=== PATIENT | male | born 1935 | race Caucasian/White ===

== ENCOUNTER 2018-11-12 04:39 | Inpatient (IN) | payer MEDICARE, BC ==
[2018-11-12] MEDS ORDERED: Sodium Chloride 0.9% 1,000 ML IV ONE (05:03)
[2018-11-12] MEDS ORDERED: Ondansetron 4 MG/2 ML SDV IV ONE (05:03)
--- NOTE | 2018-11-12 05:06 | EDM.PDOC ---
<SaabJoseph Erin - Last Filed: 11/12/18 06:44> ED HPI GENERAL MEDICAL PROBLEM - General Stated Complaint: WEAK [id number] Time Seen by Provider: 11/12/18 04:55 Source of Information: Reports: Patient, Family History Limitations: Reports: No Limitations - History of Present Illness INITIAL COMMENTS - FREE TEXT/NARRATIVE: This 83 yo male patient was brought to the ED by family due to increased weakness, fall, vomiting (black) and black stools. The patient reports he has not been feeling well over the past couple of days. The patient reports he has been vomiting a black substance and having black stools for the past 3 days. The patients family reports the patient has not been eating much over the past 3 months, but has been drinking alcohol. The patient has been seen at the [facility] [place], but they have been told that his labs "check out". The family report that they have been telling them that the patient is malnourished. The patient admits to having a couple of drinks of whiskey daily. The patient reports that he used to drink "a lot". The family believes that he may drink 6 shots per day at this time. The family reports that the patient used to drink 1 bottle of whiskey every 1-2 days up to 2 weeks ago. The family reports the patient has a history of a stomach ulcer (non-compliant with PPI) and anemia ( non-compliant with iron). Duration: Day(s):, Constant, Getting Worse Location: Reports: Generalized Quality: Reports: Other Severity: Moderate Improves with: Reports: None Worsens with: Reports: None Context: Reports: Other Associated Symptoms: Reports: Nausea/Vomiting, Weakness, Other (black stools and vomiting dark substances) Middle Abdomen Pain Score (Numeric/FACES): 4 - Related Data Allergies Allergy/AdvReac Type Severity Reaction Status Date / Time No Known Allergies Allergy Verified 11/12/18 05:05 Home Meds: Home Meds Aspirin [Halfprin] 81 mg PO DAILY 08/18/13 [History] Diltiazem HCl [Cartia Xt] 120 mg PO DAILY 02/25/18 [History] amLODIPine [Norvasc] 5 mg PO DAILY 02/25/18 [History] Omeprazole 40 mg PO DAILY 11/12/18 [History] Rosuvastatin [Crestor] 10 mg PO DAILY 11/12/18 [History] ED ROS GENERAL - Review of Systems Review Of Systems: ROS reveals no pertinent complaints other than HPI. ED EXAM, GENERAL - Physical Exam Exam: See Below Exam Limited By: No Limitations General Appearance: Alert, WD/WN, Moderate Distress, Thin Eye Exam: Bilateral Eye: EOMI, Normal Inspection, PERRL Ears: Normal External Exam, Normal Canal, Hearing Grossly Normal, Normal TMs Nose: Normal Inspection, Normal Mucosa, No Blood Throat/Mouth: Normal Inspection, Normal Lips, Normal Teeth, Normal Gums, Normal Oropharynx, Normal Voice, No Airway Compromise Head: Atraumatic, Normocephalic Neck: Normal Inspection, Supple, Non-Tender, Full Range of Motion Respiratory/Chest: No Respiratory Distress, Lungs Clear, Normal Breath Sounds, No Accessory Muscle Use, Chest Non-Tender Cardiovascular: Normal Peripheral Pulses, Regular Rate, Rhythm, No Edema, No Gallop, No JVD, No Murmur, No Rub GI/Abdominal: Normal Bowel Sounds, Soft, No Organomegaly, No Distention, No Abnormal Bruit, No Mass, Tender (diffuse tenderness to palpation) (Male) Exam: Deferred Rectal (Males) Exam: Deferred Back Exam: Normal Inspection, Full Range of Motion, NT Extremities: Arm Pain (skin tear on left elbow due to fall tonight with no current bleeding) Neurological: Alert, Oriented, CN II-XII Intact, Normal Cognition, Abnormal Gait (due to weakness) Psychiatric: Normal Affect, Normal Mood Skin Exam: Warm, Dry, Normal Color, No Rash, Wound/Incision (left arm) Lymphatic: No Adenopathy Course - Vital Signs Last Recorded V/S: Last Vital Signs Temp 36.5 C 11/12/18 04:46 Pulse 102 H 11/12/18 04:46 Resp 26 H 11/12/18 04:46 BP 91/65 11/12/18 04:46 Pulse Ox 99 11/12/18 04:46 - Orders/Labs/Meds Orders: Active Orders 24 hr Category Date Time Status EKG Documentation Completion [RC] URGENT Care 11/12/18 04:59 Active CULTURE BLOOD [BC] Stat Lab 11/12/18 05:38 Received CULTURE BLOOD [BC] Stat Lab 11/12/18 05:43 Received DRUG SCREEN URINE BIORAD [URCHEM] Stat Lab 11/12/18 04:59 Ordered STREP PNEUMONIAE ANTIGEN [MREF] Stat Lab 11/12/18 08:54 Ordered Lactated Ringers [Ringers, Lactated] 1,000 ml Med 11/12/18 07:15 Active IV ASDIRECTED Blood Culture x2 Reflex Set [OM.PC] Stat Oth 11/12/18 05:28 Ordered Medication Orders Lactated Ringer's (Ringers, Lactated) 1,000 mls @ 250 mls/hr IV ASDIRECTED ROEL Last Admin: 11/12/18 07:06 Dose: 250 mls/hr Labs: Laboratory Tests 11/12/18 11/12/18 11/12/18 Range/Units 04:54 04:54 04:54 WBC 25.6 H* (5.0-10.0) 10^3/uL RBC 4.47 L (4.6-6.2) 10^6/uL Hgb 11.7 L (14.0-18.0) g/dL Hct 35.4 L (40.0-54.0) % MCV 79.2 L (80-100) fL MCH 26.2 L (27.0-34.0) pg MCHC 33.1 (33.0-35.0) g/dL Plt Count 458 H (150-450) 10^3/uL Neut % (Auto) 89.8 H (42.2-75.2) % Lymph % (Auto) 2.5 L (20.5-50.1) % Park % (Auto) 7.7 (2-8) % Eos % (Auto) 0.0 L (1.0-3.0) % Baso % (Auto) 0.0 (0.0-1.0) % APTT 26.3 (22.0-34.0) SEC Sodium (135-145) mmol/L Potassium (3.6-5.0) mmol/L Chloride (101-111) mmol/L Carbon Dioxide (21.0-31.0) mmol/L Anion Gap BUN (7-18) mg/dL Creatinine (0.6-1.3) mg/dL Est Cr Clr Drug Dosing mL/min Estimated GFR (MDRD) BUN/Creatinine Ratio Glucose (74-105) mg/dL Lactic Acid (0.5-2.2) mmol/L Calcium (8.4-10.2) mg/dl Magnesium 1.6 L (1.8-2.5) mg/dL Total Bilirubin (0.2-1.0) mg/dL AST (10-42) IU/L ALT (10-60) IU/L Alkaline Phosphatase (42-121) IU/L Ammonia (11-35) umol/L Troponin I (0.00-0.02) ng/ml Total Protein (6.7-8.2) g/dl Albumin (3.2-5.5) g/dl Globulin Albumin/Globulin Ratio Amylase 32 (28-100) U/L Lipase 17 L (22-51) U/L Ethyl Alcohol < 5 mg/dL 11/12/18 11/12/18 11/12/18 Range/Units 04:54 05:43 05:43 WBC (5.0-10.0) 10^3/uL RBC (4.6-6.2) 10^6/uL Hgb (14.0-18.0) g/dL Hct (40.0-54.0) % MCV (80-100) fL MCH (27.0-34.0) pg MCHC (33.0-35.0) g/dL Plt Count (150-450) 10^3/uL Neut % (Auto) (42.2-75.2) % Lymph % (Auto) (20.5-50.1) % Park % (Auto) (2-8) % Eos % (Auto) (1.0-3.0) % Baso % (Auto) (0.0-1.0) % APTT (22.0-34.0) SEC Sodium 132 L (135-145) mmol/L Potassium 3.3 L (3.6-5.0) mmol/L Chloride 90 L (101-111) mmol/L Carbon Dioxide 21.0 (21.0-31.0) mmol/L Anion Gap 24.3 BUN 19 H (7-18) mg/dL Creatinine 1.6 H (0.6-1.3) mg/dL Est Cr Clr Drug Dosing 33.68 mL/min Estimated GFR (MDRD) 42 BUN/Creatinine Ratio 11.87 Glucose 226 H (74-105) mg/dL Lactic Acid 6.3 H (0.5-2.2) mmol/L Calcium 8.2 L (8.4-10.2) mg/dl Magnesium (1.8-2.5) mg/dL Total Bilirubin 0.6 (0.2-1.0) mg/dL AST 39 (10-42) IU/L ALT 13 (10-60) IU/L Alkaline Phosphatase 119 (42-121) IU/L Ammonia 10 L (11-35) umol/L Troponin I 0.04 H* (0.00-0.02) ng/ml Total Protein 5.7 L (6.7-8.2) g/dl Albumin 2.0 L (3.2-5.5) g/dl Globulin 3.7 Albumin/Globulin Ratio 0.54 Amylase (28-100) U/L Lipase (22-51) U/L Ethyl Alcohol mg/dL 11/12/18 11/12/18 Range/Units 08:06 08:06 WBC (5.0-10.0) 10^3/uL RBC (4.6-6.2) 10^6/uL Hgb (14.0-18.0) g/dL Hct (40.0-54.0) % MCV (80-100) fL MCH (27.0-34.0) pg MCHC (33.0-35.0) g/dL Plt Count (150-450) 10^3/uL Neut % (Auto) (42.2-75.2) % Lymph % (Auto) (20.5-50.1) % Park % (Auto) (2-8) % Eos % (Auto) (1.0-3.0) % Baso % (Auto) (0.0-1.0) % APTT (22.0-34.0) SEC Sodium (135-145) mmol/L Potassium (3.6-5.0) mmol/L Chloride (101-111) mmol/L Carbon Dioxide (21.0-31.0) mmol/L Anion Gap BUN (7-18) mg/dL Creatinine (0.6-1.3) mg/dL Est Cr Clr Drug Dosing mL/min Estimated GFR (MDRD) BUN/Creatinine Ratio Glucose (74-105) mg/dL Lactic Acid 4.3 H (0.5-2.2) mmol/L Calcium (8.4-10.2) mg/dl Magnesium (1.8-2.5) mg/dL Total Bilirubin (0.2-1.0) mg/dL AST (10-42) IU/L ALT (10-60) IU/L Alkaline Phosphatase (42-121) IU/L Ammonia (11-35) umol/L Troponin I 0.04 H* (0.00-0.02) ng/ml Total Protein (6.7-8.2) g/dl Albumin (3.2-5.5) g/dl Globulin Albumin/Globulin Ratio Amylase (28-100) U/L Lipase (22-51) U/L Ethyl Alcohol mg/dL Meds: Medications Generic Name Dose Route Start Last Admin Trade Name Freq PRN Reason Stop Dose Admin Lactated Ringer's 1,000 mls @ 250 mls/hr 11/12/18 07:15 11/12/18 07:06 Ringers, Lactated IV 250 mls/hr ASDIRECTED ROEL Administration Discontinued Medications Generic Name Dose Route Start Last Admin Trade Name Freq PRN Reason Stop Dose Admin Sodium Chloride 1,000 mls @ 999 mls/hr 11/12/18 05:03 11/12/18 05:08 Normal Saline IV 11/12/18 06:03 999 mls/hr .BOLUS ONE Administration Azithromycin 500 mg/ Sodium 250 mls @ 250 mls/hr 11/12/18 07:03 11/12/18 07: 55 Chloride IV 11/12/18 08:02 250 mls/hr ONETIME ONE Administration Ceftriaxone Sodium 2,000 mg/ 100 mls @ 200 mls/hr 11/12/18 07:03 11/12/18 07: 12 Sodium Chloride IV 11/12/18 07:32 200 mls/hr ONETIME ONE Administration Ondansetron HCl 4 mg 11/12/18 05:03 11/12/18 05:10 Zofran IV 11/12/18 05:04 4 mg ONETIME ONE Administration Pantoprazole Sodium 40 mg 11/12/18 05:15 11/12/18 05:23 Protonix Iv IVPUSH 11/12/18 05:16 40 mg ONETIME ONE Administration - Re-Assessments/Exams Free Text/Narrative Re-Assessment/Exam: 11/12/18 05:44 After the initial assessment, the patient reports he did hit his head when he fell today. The patient does not know where he hit his head. The patient reports that it is all "confusing". Departure - Departure Disposition: Admitted As Inpatient 68 Clinical Impression: Peptic ulcer, DORENE (acute kidney injury), Hypomagnesemia Pneumonia Qualifiers: Pneumonia type: due to unspecified organism Laterality: right Lung location: lower lobe of lung Qualified Code(s): J18.1 - Lobar pneumonia, unspecified organism Sepsis Qualifiers: Sepsis type: sepsis due to unspecified organism Qualified Code(s): A41.9 - Sepsis, unspecified organism - Discharge Information - My Orders Last 24 Hours: My Active Orders 11/12/18 07:15 Lactated Ringers [Ringers, Lactated] 1,000 ml IV ASDIRECTED 11/12/18 08:54 STREP PNEUMONIAE ANTIGEN [MREF] Stat - Assessment/Plan Last 24 Hours: My Active Orders 11/12/18 07:15 Lactated Ringers [Ringers, Lactated] 1,000 ml IV ASDIRECTED 11/12/18 08:54 STREP PNEUMONIAE ANTIGEN [MREF] Stat <Yury Hernandez G - Last Filed: 11/12/18 09:14> Course - Re-Assessments/Exams Free Text/Narrative Re-Assessment/Exam: 11/12/18 07:15 Assumed care of the patient. Will repeat lactic acid and troponin. More fluids and rocephin and azithromycin. 11/12/18 09:11 lactic improved to 4 aprox. Trop stayed the same. Still unable to urinate. Fluids still going. Spoke with Dr. Whelan. HPI ER COURSE findings and concerns were relayed to him. Questions answered and he accepted the patient in transfer at this time. Departure - Departure Time of Disposition: 09:12 - Assessment/Plan Assessment:: RLL pneumona weakness DORENE Hypomag sepsis without septic shock. Plan: admit Dr. Whelan inpatient [facility]
[2018-11-12] MEDS ORDERED: Pantoprazole 40 MG Vial IVPUSH ONE (05:15)
[2018-11-12 05:37] LABS: ANION GAP 24.3
[2018-11-12] MEDS ORDERED: Azithromycin 500 MG in Sodium Chloride 0.9% 250 ML IV ONE (07:03)
[2018-11-12] MEDS ORDERED: Lactated Ringers 1,000 ML IV SCH (07:15)
[2018-11-12] MEDS ORDERED: LORazepam 1 MG Tab PO PRN (10:41)
[2018-11-12] MEDS ORDERED: LORazepam 2 MG/ML Syringe IVPUSH PRN (10:43)
[2018-11-12] MEDS ORDERED: NS + KCl 20mEq/L 1,000 ML IV SCH (10:45)
[2018-11-12] MEDS ORDERED: Potassium Chloride 10 MEQ Tab.ER PO ONE (10:46)
[2018-11-12] MEDS ORDERED: Albuterol/Ipratropium 3.0-0.5 MG/3 ML Neb Soln NEB PRN (10:58)
[2018-11-12] MEDS ORDERED: Sodium Chloride 0.9% 10 ML Syringe FLUSH PRN (11:01)
[2018-11-12] MEDS ORDERED: Acetaminophen 325 MG Tab PO PRN (11:01)
[2018-11-12] MEDS ORDERED: Ondansetron 4 MG/2 ML SDV IVPUSH PRN (11:01)
[2018-11-12] MEDS ORDERED: Zolpidem 5 MG Tab PO PRN (11:01)
[2018-11-12] MEDS ORDERED: Docusate Sodium 100 MG Cap PO PRN (11:01)
--- NOTE | 2018-11-12 11:18 | PCM.HP ---
H&P History of Present Illness - General Date of Service: 11/12/18 Admit Problem/Dx: Admission Diagnosis/Problem Admission Diagnosis/Problem Acute renal failure Source of Information: Patient - History of Present Illness Initial Comments - Free Text/Narative: 83-year-old gentleman with a history of alcohol use, COPD, hypertension, nonspecified leukocytosis. The patient has been living alone. Has been drinking alcohol. He says he has been drinking only a few drinks a day but family suspects more. The past few days prior to admission the patient has been increasingly weak, low oral intake, unsteady. He reports multiple falls although cannot really give more details. He has a history of chronic shortness of breath, reports fever a few days ago, has occasional cough with no sputum production. No chest pain. Reports epigastric pain. He also was noted to have black stool and vomiting. Apparently recently he was evaluated in [place] but laboratory studies were "good" Family brought the patient into the emergency room for further evaluation. Middle Abdomen Pain Score (Numeric/FACES): 4 - Related Data Allergies/Adverse Reactions: Allergies Allergy/AdvReac Type Severity Reaction Status Date / Time No Known Allergies Allergy Verified 11/12/18 10:22 Home Medications: Home Meds Aspirin [Halfprin] 81 mg PO DAILY 08/18/13 [History] Diltiazem HCl [Cartia Xt] 120 mg PO BEDTIME 02/25/18 [History] Albuterol [Proventil Neb Soln] 2.5 mg INH Q4H PRN 11/12/18 [History] Budesonide [Pulmicort] 2 ml INH BID 11/12/18 [History] Ipratropium [Atrovent] 2.5 ml INH BID 11/12/18 [History] Omeprazole 40 mg PO DAILY 11/12/18 [History] Rosuvastatin [Crestor] 10 mg PO BEDTIME 11/12/18 [History] amLODIPine [Norvasc] 5 mg PO DAILY 11/12/18 [History] Past Medical History Cardiovascular History: Reports: High Cholesterol, Hypertension Respiratory History: Reports: COPD Gastrointestinal History: Reports: GERD, PUD Genitourinary History: Reports: BPH Psychiatric History: Reports: Addiction Hematologic History: Reports: Anemia Social & Family History - Family History Family Medical History: Noncontributory - Tobacco Use Smoking Status *Q: Current Every Day Smoker Years of Tobacco use: 67 Packs/Tins Daily: 0.5 Second Hand Smoke Exposure: Yes - Caffeine Use Caffeine Use: Reports: Coffee Caffeine Use Comment: drinks 7-UP - Alcohol Use Days Per Week of Alcohol Use: 7 Number of Drinks Per Day: 2 Total Drinks Per Week: 14 - Recreational Drug Use Recreational Drug Use: No H&P Review of Systems - Review of Systems: Review Of Systems: See Below General: Reports: Fever (Days ago) Pulmonary: Reports: Shortness of Breath (Chronic). Denies: Wheezing Cardiovascular: Denies: Chest Pain, Palpitations, Edema, Syncope (Falling episodes) Gastrointestinal: Reports: Abdominal Pain, Black Stool, Nausea, Vomiting Neurological: Reports: Dizziness Exam - Exam Exam: See Below - Vital Signs Vital Signs: Last Vital Signs Temp 36.6 C 11/12/18 10:12 Pulse 78 11/12/18 10:12 Resp 24 H 11/12/18 10:12 BP 114/80 11/12/18 10:12 Pulse Ox 100 11/12/18 10:12 Weight: 60.192 kg - Exam General: Alert, Oriented Neck: Supple Lungs: Normal Respiratory Effort, Decreased Breath Sounds. No: Wheezing Cardiovascular: Regular Rate, Regular Rhythm GI/Abdominal Exam: Normal Bowel Sounds, Soft, Tender (Moderate diffuse tenderness). No: Distended, Guarding, Rigid, Rebound Extremities: No Pedal Edema Skin: Warm, Dry Neuro Extensive - Mental Status: Alert, Oriented x3 - Patient Data Lab Results Last 24 hrs: Laboratory Results - last 24 hr 11/12/18 11/12/18 11/12/18 Range/Units 04:54 04:54 04:54 WBC 25.6 H* (5.0-10.0) 10^3/uL RBC 4.47 L (4.6-6.2) 10^6/uL Hgb 11.7 L (14.0-18.0) g/dL Hct 35.4 L (40.0-54.0) % MCV 79.2 L (80-100) fL MCH 26.2 L (27.0-34.0) pg MCHC 33.1 (33.0-35.0) g/dL Plt Count 458 H (150-450) 10^3/uL Neut % (Auto) 89.8 H (42.2-75.2) % Lymph % (Auto) 2.5 L (20.5-50.1) % [place] % (Auto) 7.7 (2-8) % Eos % (Auto) 0.0 L (1.0-3.0) % Baso % (Auto) 0.0 (0.0-1.0) % APTT 26.3 (22.0-34.0) SEC Sodium (135-145) mmol/L Potassium (3.6-5.0) mmol/L Chloride (101-111) mmol/L Carbon Dioxide (21.0-31.0) mmol/L Anion Gap BUN (7-18) mg/dL Creatinine (0.6-1.3) mg/dL Est Cr Clr Drug Dosing mL/min Estimated GFR (MDRD) BUN/Creatinine Ratio Glucose (74-105) mg/dL Lactic Acid (0.5-2.2) mmol/L Calcium (8.4-10.2) mg/dl Magnesium 1.6 L (1.8-2.5) mg/dL Total Bilirubin (0.2-1.0) mg/dL AST (10-42) IU/L ALT (10-60) IU/L Alkaline Phosphatase (42-121) IU/L Ammonia (11-35) umol/L Troponin I (0.00-0.02) ng/ml Total Protein (6.7-8.2) g/dl Albumin (3.2-5.5) g/dl Globulin Albumin/Globulin Ratio Amylase 32 (28-100) U/L Lipase 17 L (22-51) U/L Ethyl Alcohol < 5 mg/dL 11/12/18 11/12/18 11/12/18 Range/Units 04:54 05:43 05:43 WBC (5.0-10.0) 10^3/uL RBC (4.6-6.2) 10^6/uL Hgb (14.0-18.0) g/dL Hct (40.0-54.0) % MCV (80-100) fL MCH (27.0-34.0) pg MCHC (33.0-35.0) g/dL Plt Count (150-450) 10^3/uL Neut % (Auto) (42.2-75.2) % Lymph % (Auto) (20.5-50.1) % [place] % (Auto) (2-8) % Eos % (Auto) (1.0-3.0) % Baso % (Auto) (0.0-1.0) % APTT (22.0-34.0) SEC Sodium 132 L (135-145) mmol/L Potassium 3.3 L (3.6-5.0) mmol/L Chloride 90 L (101-111) mmol/L Carbon Dioxide 21.0 (21.0-31.0) mmol/L Anion Gap 24.3 BUN 19 H (7-18) mg/dL Creatinine 1.6 H (0.6-1.3) mg/dL Est Cr Clr Drug Dosing 33.68 mL/min Estimated GFR (MDRD) 42 BUN/Creatinine Ratio 11.87 Glucose 226 H (74-105) mg/dL Lactic Acid 6.3 H (0.5-2.2) mmol/L Calcium 8.2 L (8.4-10.2) mg/dl Magnesium (1.8-2.5) mg/dL Total Bilirubin 0.6 (0.2-1.0) mg/dL AST 39 (10-42) IU/L ALT 13 (10-60) IU/L Alkaline Phosphatase 119 (42-121) IU/L Ammonia 10 L (11-35) umol/L Troponin I 0.04 H* (0.00-0.02) ng/ml Total Protein 5.7 L (6.7-8.2) g/dl Albumin 2.0 L (3.2-5.5) g/dl Globulin 3.7 Albumin/Globulin Ratio 0.54 Amylase (28-100) U/L Lipase (22-51) U/L Ethyl Alcohol mg/dL 11/12/18 11/12/18 Range/Units 08:06 08:06 WBC (5.0-10.0) 10^3/uL RBC (4.6-6.2) 10^6/uL Hgb (14.0-18.0) g/dL Hct (40.0-54.0) % MCV (80-100) fL MCH (27.0-34.0) pg MCHC (33.0-35.0) g/dL Plt Count (150-450) 10^3/uL Neut % (Auto) (42.2-75.2) % Lymph % (Auto) (20.5-50.1) % [place] % (Auto) (2-8) % Eos % (Auto) (1.0-3.0) % Baso % (Auto) (0.0-1.0) % APTT (22.0-34.0) SEC Sodium (135-145) mmol/L Potassium (3.6-5.0) mmol/L Chloride (101-111) mmol/L Carbon Dioxide (21.0-31.0) mmol/L Anion Gap BUN (7-18) mg/dL Creatinine (0.6-1.3) mg/dL Est Cr Clr Drug Dosing mL/min Estimated GFR (MDRD) BUN/Creatinine Ratio Glucose (74-105) mg/dL Lactic Acid 4.3 H (0.5-2.2) mmol/L Calcium (8.4-10.2) mg/dl Magnesium (1.8-2.5) mg/dL Total Bilirubin (0.2-1.0) mg/dL AST (10-42) IU/L ALT (10-60) IU/L Alkaline Phosphatase (42-121) IU/L Ammonia (11-35) umol/L Troponin I 0.04 H* (0.00-0.02) ng/ml Total Protein (6.7-8.2) g/dl Albumin (3.2-5.5) g/dl Globulin Albumin/Globulin Ratio Amylase (28-100) U/L Lipase (22-51) U/L Ethyl Alcohol mg/dL Result Diagrams: 11/12/18 04:54 11/12/18 04:54 Syd Results Last 24 hrs: Microbiology 11/12/18 04:55 Stool Occult Blood (SYD) - Final Stool / Feces NEGATIVE OCCULT BLOOD Imaging Impressions Last 24 hrs: Chest x-ray per my reading shows right-sided opacity CT head per reading shows no acute change EKG per my reading shows sinus rhythm *Q Meaningful Use (ADM) - VTE *Q VTE Anticoagulation Contraindications: Treatment Not Tolerated - Problem List (1) DORENE (acute kidney injury) SNOMED Code(s): 81741862 ICD Code: N17.9 - ACUTE KIDNEY FAILURE, UNSPECIFIED Status: Acute Current Visit: No (2) Pneumonia SNOMED Code(s): 041114384 ICD Code: J18.9 - PNEUMONIA, UNSPECIFIED ORGANISM Status: Acute Current Visit: No Qualifiers: Pneumonia type: due to unspecified organism Laterality: right Lung location: lower lobe of lung Qualified Code(s): J18.1 - Lobar pneumonia, unspecified organism (3) Sepsis SNOMED Code(s): 45011413 ICD Code: A41.9 - SEPSIS, UNSPECIFIED ORGANISM Status: Acute Current Visit: No Qualifiers: Sepsis type: sepsis due to unspecified organism Qualified Code(s): A41.9 - Sepsis, unspecified organism Problem List Initiated/Reviewed/Updated: Yes Orders Last 24hrs: Active Orders 24 hr Category Date Time Status Patient Status [ADT] Routine ADT 11/12/18 11:01 Ordered Antiembolic Devices [RC] PER UNIT ROUTINE Care 11/12/18 11:03 Ordered EKG Documentation Completion [RC] URGENT Care 11/12/18 04:59 Active Oxygen Therapy [RC] PRN Care 11/12/18 11:01 Ordered Peripheral IV Care [RC] . DIRECTED Care 11/12/18 11:04 Ordered RT Aerosol Therapy [RC] ASDIRECTED Care 11/12/18 10:58 Ordered Telemetry Monitoring [Cardiac Monitoring] [RC] . Care 11/12/18 11:05 Ordered DIRECTED Up With Assistance [RC] ASDIRECTED Care 11/12/18 11:01 Ordered VTE/DVT Education [RC] PER UNIT ROUTINE Care 11/12/18 11:01 Ordered Vital Signs [RC] Q4H Care 11/12/18 11:01 Ordered OT Evaluation and Treatment [CONS] Routine Cons 11/12/18 11:05 Ordered PT Evaluation and Treatment [CONS] Routine Cons 11/12/18 11:05 Ordered Full Liquid Diet [DIET] Diet 11/12/18 Lunch Ordered BASIC METABOLIC PANEL,BMP [CHEM] AM Lab 11/13/18 05:15 Ordered CBC WITH AUTO DIFF [HEME] AM Lab 11/13/18 05:15 Ordered CULTURE BLOOD [BC] Stat Lab 11/12/18 05:38 Received CULTURE BLOOD [BC] Stat Lab 11/12/18 05:43 Received CULTURE SPUTUM + SMEAR [RM] Routine Lab 11/12/18 10:15 Ordered DRUG SCREEN URINE BIORAD [URCHEM] Stat Lab 11/12/18 04:59 Ordered LACTIC ACID [CHEM] AM Lab 11/13/18 05:11 Ordered OCCULT BLD DIAGNOS Routine Lab 11/12/18 11:12 Ordered STREP PNEUMONIAE ANTIGEN [MREF] Stat Lab 11/12/18 08:54 Ordered TROPONIN I [CHEM] AM Lab 11/13/18 05:11 Ordered Acetaminophen [Tylenol] Med 11/12/18 11:01 Ordered 650 mg PO Q4H PRN Albuterol/Ipratropium [DuoNeb 3.0-0.5 MG/3 ML] Med 11/12/18 18:00 Ordered 3 ml NEB BIDRT Albuterol/Ipratropium [DuoNeb 3.0-0.5 MG/3 ML] Med 11/12/18 10:58 Ordered 3 ml NEB Q4HRRT PRN Azithromycin [Zithromax] 500 mg Med 11/13/18 10:45 Ordered Sodium Chloride 0.9% [Normal Saline] 250 ml IV Q24H Budesonide [Pulmicort] Med 11/12/18 11:00 Ordered 0.5 mg INH BID Diltiazem [Cardizem CD] Med 11/13/18 21:00 Ordered 120 mg PO BEDTIME Docusate Sodium [Colace] Med 11/12/18 11:01 Ordered 100 mg PO BID PRN LORazepam [Ativan] Med 11/12/18 10:43 Ordered See Protocol IVPUSH ASDIRECTED PRN LORazepam [Ativan] Med 11/12/18 10:41 Ordered See Protocol PO Q1H PRN Magnesium Oxide Med 11/12/18 18:00 Ordered 250 mg PO BIDM Ondansetron [Zofran] Med 11/12/18 11:01 Ordered 4 mg IVPUSH Q6H PRN Pantoprazole [ProTONIX] Med 11/12/18 17:00 Ordered 40 mg PO BIDAC Rosuvastatin [Crestor] Med 11/12/18 21:00 Ordered 10 mg PO BEDTIME Sodium Chloride 0.9% [Saline Flush] Med 11/12/18 11:01 Ordered 10 ml FLUSH ASDIRECTED PRN Sodium Chloride 0.9% with KCl 20 mEq @ 125 mL/Hr (1000 Med 11/12/18 10:45 Ordered mL) NS + KCl 20mEq/L [Normal Saline with 20 mEq KCl] 1,000 ml IV ASDIRECTED Zolpidem [Ambien] Med 11/12/18 11:01 Ordered 5 mg PO BEDTIME PRN cefTRIAXone [Rocephin] 1 gm Med 11/13/18 10:45 Ordered Sodium Chloride 0.9% [Normal Saline] 50 ml IV Q24H Anticoagulation Contraindications VTE [AST] Per Unit Oth 11/12/18 11:01 Ordered Routine Antiembolic Hose [OM.PC] Per Unit Routine Oth 11/12/18 11:03 Ordered Blood Culture x2 Reflex Set [OM.PC] Stat Oth 11/12/18 05:28 Ordered Peripheral IV Insertion Adult [OM.PC] Routine Oth 11/12/18 11:01 Ordered Resuscitation Status Routine Resus Stat 11/12/18 11:01 Ordered Medication Orders Acetaminophen (Tylenol) 650 mg PO Q4H PRN PRN Reason: Pain (Mild 1-3)/fever Albuterol/Ipratropium (Duoneb 3.0-0.5 Mg/3 Ml) 3 ml NEB BIDRT ROEL Albuterol/Ipratropium (Duoneb 3.0-0.5 Mg/3 Ml) 3 ml NEB Q4HRRT PRN PRN Reason: sob Budesonide (Pulmicort) 0.5 mg INH BID ROEL Diltiazem HCl (Cardizem Cd) 120 mg PO BEDTIME ROEL Docusate Sodium (Colace) 100 mg PO BID PRN PRN Reason: Constipation Azithromycin 500 mg/ Sodium (Chloride) 250 mls @ 250 mls/hr IV Q24H ROEL Ceftriaxone Sodium 1 gm/ (Sodium Chloride) 50 mls @ 50 mls/hr IV Q24H ROEL Potassium Chloride/Sodium Chloride (Normal Saline With 20 Meq Kcl) 1,000 mls @ 125 mls/hr IV ASDIRECTED ROEL Lorazepam (Ativan) 0 mg PO ASDIRECTED PRN; Protocol PRN Reason: alcohol withdrawal Lorazepam (Ativan) 0 mg IVPUSH ASDIRECTED PRN; Protocol PRN Reason: alcohol withdrawal Magnesium Oxide (Magnesium Oxide) 250 mg PO BIDM [facility] Stop: 11/13/18 08:01 Ondansetron HCl (Zofran) 4 mg IVPUSH Q6H PRN PRN Reason: Nausea/Vomiting Pantoprazole Sodium (Protonix) 40 mg PO BIDAC ROEL Rosuvastatin Calcium (Crestor) 10 mg PO BEDTIME ROEL Sodium Chloride (Saline Flush) 10 ml FLUSH ASDIRECTED PRN PRN Reason: Keep Vein Open Zolpidem Tartrate (Ambien) 5 mg PO BEDTIME PRN PRN Reason: Sleep Assessment/Plan Comment:: 83-year-old gentleman brought in by family with a history of alcohol use, low oral intake, unsteadiness, black stool and vomiting. The patient was noted to have leukocytosis but also has a history of leukocytosis with a white count in the past 13-22 range There is concern for an infiltrate on chest x-ray compatible with pneumonia Will obtain blood culture Obtain sputum culture Empirically treat with azithromycin and Rocephin Black stool and vomiting Concern for GI bleed, likely upper GI Will start the patient on IV fluid, hold aspirin, check stool for a "blood Treat with Protonix twice a day we'll monitor hemoglobin, expect some drop from hydration as well Acute renal failure with baseline creatinine around 0.8 Likely due to dehydration, due to low oral intake Give IV fluids Monitor output Follow renal function and electrolytes Hypokalemia We'll replace Lactic acidosis Possible sepsis with pneumonia I don't think the patient has severe sepsis Treat with IV fluids, treat the infection, monitor vitals History of coronary artery disease We will hold aspirin with the concern for GI bleed Continue Crestor Repeat troponin COPD, no acute exacerbation will use Pulmicort, DuoNeb History of hypertension Blood pressure has been on the lower side On the medication list the patient has Norvasc and Cartia I will discontinue the Norvasc Resume Cartia from tomorrow night if blood pressure tolerate Falling We will have PT and OT evaluation and treatment DVT prophylaxis with SCDs, mobilization Hold aspirin and heparin with the concern of GI bleed
[2018-11-12] MEDS ORDERED: Pantoprazole 40 MG Tab.CR PO SCH (17:00)
[2018-11-12] MEDS ORDERED: Budesonide 0.5 MG/2 ML Neb Susp INH SCH (18:00)
[2018-11-12] MEDS ORDERED: Albuterol/Ipratropium 3.0-0.5 MG/3 ML Neb Soln NEB SCH (18:00)
[2018-11-12] MEDS ORDERED: Diltiazem 25 MG/5 ML SDV ONE (18:25)
[2018-11-12] MEDS ORDERED: Diltiazem 25 MG/5 ML SDV IVPUSH ONE ×2 (18:30→18:41)
[2018-11-12] MEDS ORDERED: Digoxin 500 MCG/2 ML Amp IVPUSH ONE (19:19)
--- NOTE | 2018-11-12 19:26 | PCM.PN ---
- General Info Date of Service: 11/12/18 Subjective Update: developed sob, tachycardia no uo today on tele HR 150-160s BP 80s-90s syst EKG obtained: afib with RVR lungs: ronchi - mostly upper airway, decreased BS heart: tachycardia moser placed: dark urine SOB improved after neb for afib with rvr gave cardizem 10 mg x2 - no response gave 250 IVF bolus - BP upto 90s will give digoxin 0.125 mg IV start cardizem drip 5 mg/h cont IVF cont tele monitoring, discussed code status with pt - in the presence of 2 sons wish DNR/DNI status - Patient Data Vitals - Most Recent: Last Vital Signs Temp 36.7 C 11/12/18 15:50 Pulse 98 11/12/18 15:50 Resp 20 11/12/18 15:50 BP 115/76 11/12/18 15:50 Pulse Ox 94 L 11/12/18 15:50 Weight - Most Recent: 60.192 kg Lab Results Last 24 Hours: Laboratory Results - last 24 hr 11/12/18 11/12/18 11/12/18 Range/Units 04:54 04:54 04:54 WBC 25.6 H* (5.0-10.0) 10^3/uL RBC 4.47 L (4.6-6.2) 10^6/uL Hgb 11.7 L (14.0-18.0) g/dL Hct 35.4 L (40.0-54.0) % MCV 79.2 L (80-100) fL MCH 26.2 L (27.0-34.0) pg MCHC 33.1 (33.0-35.0) g/dL Plt Count 458 H (150-450) 10^3/uL Neut % (Auto) 89.8 H (42.2-75.2) % Lymph % (Auto) 2.5 L (20.5-50.1) % Dixon % (Auto) 7.7 (2-8) % Eos % (Auto) 0.0 L (1.0-3.0) % Baso % (Auto) 0.0 (0.0-1.0) % APTT 26.3 (22.0-34.0) SEC Sodium (135-145) mmol/L Potassium (3.6-5.0) mmol/L Chloride (101-111) mmol/L Carbon Dioxide (21.0-31.0) mmol/L Anion Gap BUN (7-18) mg/dL Creatinine (0.6-1.3) mg/dL Est Cr Clr Drug Dosing mL/min Estimated GFR (MDRD) BUN/Creatinine Ratio Glucose (74-105) mg/dL Lactic Acid (0.5-2.2) mmol/L Calcium (8.4-10.2) mg/dl Magnesium 1.6 L (1.8-2.5) mg/dL Total Bilirubin (0.2-1.0) mg/dL AST (10-42) IU/L ALT (10-60) IU/L Alkaline Phosphatase (42-121) IU/L Ammonia (11-35) umol/L Troponin I (0.00-0.02) ng/ml Total Protein (6.7-8.2) g/dl Albumin (3.2-5.5) g/dl Globulin Albumin/Globulin Ratio Amylase 32 (28-100) U/L Lipase 17 L (22-51) U/L Ethyl Alcohol < 5 mg/dL 11/12/18 11/12/18 11/12/18 Range/Units 04:54 05:43 05:43 WBC (5.0-10.0) 10^3/uL RBC (4.6-6.2) 10^6/uL Hgb (14.0-18.0) g/dL Hct (40.0-54.0) % MCV (80-100) fL MCH (27.0-34.0) pg MCHC (33.0-35.0) g/dL Plt Count (150-450) 10^3/uL Neut % (Auto) (42.2-75.2) % Lymph % (Auto) (20.5-50.1) % Dixon % (Auto) (2-8) % Eos % (Auto) (1.0-3.0) % Baso % (Auto) (0.0-1.0) % APTT (22.0-34.0) SEC Sodium 132 L (135-145) mmol/L Potassium 3.3 L (3.6-5.0) mmol/L Chloride 90 L (101-111) mmol/L Carbon Dioxide 21.0 (21.0-31.0) mmol/L Anion Gap 24.3 BUN 19 H (7-18) mg/dL Creatinine 1.6 H (0.6-1.3) mg/dL Est Cr Clr Drug Dosing 33.68 mL/min Estimated GFR (MDRD) 42 BUN/Creatinine Ratio 11.87 Glucose 226 H (74-105) mg/dL Lactic Acid 6.3 H (0.5-2.2) mmol/L Calcium 8.2 L (8.4-10.2) mg/dl Magnesium (1.8-2.5) mg/dL Total Bilirubin 0.6 (0.2-1.0) mg/dL AST 39 (10-42) IU/L ALT 13 (10-60) IU/L Alkaline Phosphatase 119 (42-121) IU/L Ammonia 10 L (11-35) umol/L Troponin I 0.04 H* (0.00-0.02) ng/ml Total Protein 5.7 L (6.7-8.2) g/dl Albumin 2.0 L (3.2-5.5) g/dl Globulin 3.7 Albumin/Globulin Ratio 0.54 Amylase (28-100) U/L Lipase (22-51) U/L Ethyl Alcohol mg/dL 11/12/18 11/12/18 Range/Units 08:06 08:06 WBC (5.0-10.0) 10^3/uL RBC (4.6-6.2) 10^6/uL Hgb (14.0-18.0) g/dL Hct (40.0-54.0) % MCV (80-100) fL MCH (27.0-34.0) pg MCHC (33.0-35.0) g/dL Plt Count (150-450) 10^3/uL Neut % (Auto) (42.2-75.2) % Lymph % (Auto) (20.5-50.1) % Dixon % (Auto) (2-8) % Eos % (Auto) (1.0-3.0) % Baso % (Auto) (0.0-1.0) % APTT (22.0-34.0) SEC Sodium (135-145) mmol/L Potassium (3.6-5.0) mmol/L Chloride (101-111) mmol/L Carbon Dioxide (21.0-31.0) mmol/L Anion Gap BUN (7-18) mg/dL Creatinine (0.6-1.3) mg/dL Est Cr Clr Drug Dosing mL/min Estimated GFR (MDRD) BUN/Creatinine Ratio Glucose (74-105) mg/dL Lactic Acid 4.3 H (0.5-2.2) mmol/L Calcium (8.4-10.2) mg/dl Magnesium (1.8-2.5) mg/dL Total Bilirubin (0.2-1.0) mg/dL AST (10-42) IU/L ALT (10-60) IU/L Alkaline Phosphatase (42-121) IU/L Ammonia (11-35) umol/L Troponin I 0.04 H* (0.00-0.02) ng/ml Total Protein (6.7-8.2) g/dl Albumin (3.2-5.5) g/dl Globulin Albumin/Globulin Ratio Amylase (28-100) U/L Lipase (22-51) U/L Ethyl Alcohol mg/dL Syd Results Last 24 Hours: Microbiology 11/12/18 04:55 Stool Occult Blood (SYD) - Final Stool / Feces NEGATIVE OCCULT BLOOD Med Orders - Current: Current Medications Acetaminophen (Tylenol) 650 mg PO Q4H PRN PRN Reason: Pain (Mild 1-3)/fever Albuterol/Ipratropium (Duoneb 3.0-0.5 Mg/3 Ml) 3 ml NEB BIDRT [facility] Last Admin: 11/12/18 18:23 Dose: 3 ml Albuterol/Ipratropium (Duoneb 3.0-0.5 Mg/3 Ml) 3 ml NEB Q4HRRT PRN PRN Reason: sob Budesonide (Pulmicort) 0.5 mg INH BIDRT [facility] Last Admin: 11/12/18 18:23 Dose: 0.5 mg Digoxin (Lanoxin) 125 mcg IVPUSH ONETIME ONE Stop: 11/12/18 19:20 Docusate Sodium (Colace) 100 mg PO BID PRN PRN Reason: Constipation Azithromycin 500 mg/ Sodium (Chloride) 250 mls @ 250 mls/hr IV Q24H [facility] Ceftriaxone Sodium 1 gm/ (Sodium Chloride) 50 mls @ 50 mls/hr IV Q24H [facility] Diltiazem HCl 100 mg/ Sodium (Chloride) 100 mls @ 5 mls/hr IV .Q20H [facility]; Protocol Lorazepam (Ativan) 0 mg PO ASDIRECTED PRN; Protocol PRN Reason: alcohol withdrawal Last Admin: 11/12/18 17:14 Dose: 1 mg Lorazepam (Ativan) 0 mg IVPUSH ASDIRECTED PRN; Protocol PRN Reason: alcohol withdrawal Magnesium Oxide (Magnesium Oxide) 250 mg PO BIDM [facility] Stop: 11/13/18 08:01 Last Admin: 11/12/18 17:14 Dose: 250 mg Ondansetron HCl (Zofran) 4 mg IVPUSH Q6H PRN PRN Reason: Nausea/Vomiting Last Admin: 11/12/18 17:12 Dose: 4 mg Pantoprazole Sodium (Protonix) 40 mg PO BIDAC [facility] Last Admin: 11/12/18 17:14 Dose: 40 mg Rosuvastatin Calcium (Crestor) 10 mg PO BEDTIME [facility] Sodium Chloride (Saline Flush) 10 ml FLUSH ASDIRECTED PRN PRN Reason: Keep Vein Open Zolpidem Tartrate (Ambien) 5 mg PO BEDTIME PRN PRN Reason: Sleep Discontinued Medications Diltiazem HCl (Cardizem Cd) 120 mg PO BEDTIME [facility] Diltiazem HCl (Diltiazem) Confirm Administered Dose 25 mg .ROUTE .STK-MED ONE Stop: 11/12/18 18:26 Last Admin: 11/12/18 18:49 Dose: Not Given Diltiazem HCl (Diltiazem) 10 mg IVPUSH ONETIME ONE Stop: 11/12/18 18:31 Last Admin: 11/12/18 18:30 Dose: 10 mg Diltiazem HCl (Diltiazem) 10 mg IVPUSH ONETIME ONE Stop: 11/12/18 18:42 Last Admin: 11/12/18 18:41 Dose: 10 mg Sodium Chloride (Normal Saline) 1,000 mls @ 999 mls/hr IV .BOLUS ONE Stop: 11/12/18 06:03 Last Admin: 11/12/18 05:08 Dose: 999 mls/hr Lactated Ringer's (Ringers, Lactated) 1,000 mls @ 250 mls/hr IV ASDIRECTED [facility] Last Admin: 11/12/18 07:06 Dose: 250 mls/hr Azithromycin 500 mg/ Sodium (Chloride) 250 mls @ 250 mls/hr IV ONETIME ONE Stop: 11/12/18 08:02 Last Admin: 11/12/18 07:55 Dose: 250 mls/hr Ceftriaxone Sodium 2,000 mg/ (Sodium Chloride) 100 mls @ 200 mls/hr IV ONETIME ONE Stop: 11/12/18 07:32 Last Admin: 11/12/18 07:12 Dose: 200 mls/hr Potassium Chloride/Sodium Chloride (Normal Saline With 20 Meq Kcl) 1,000 mls @ 125 mls/hr IV ASDIRECTED [facility] Last Infusion: 11/12/18 18:46 Dose: 999 mls/hr Ondansetron HCl (Zofran) 4 mg IV ONETIME ONE Stop: 11/12/18 05:04 Last Admin: 11/12/18 05:10 Dose: 4 mg Pantoprazole Sodium (Protonix Iv) 40 mg IVPUSH ONETIME ONE Stop: 11/12/18 05:16 Last Admin: 11/12/18 05:23 Dose: 40 mg Potassium Chloride (Klor-Con 10) 40 meq PO ONETIME ONE Stop: 11/12/18 10:47 Last Admin: 11/12/18 12:16 Dose: 40 meq - Problem List & Annotations (1) DORENE (acute kidney injury) SNOMED Code(s): 51523545 Code(s): N17.9 - ACUTE KIDNEY FAILURE, UNSPECIFIED Status: Acute Current Visit: No (2) Pneumonia SNOMED Code(s): 690770924 Code(s): J18.9 - PNEUMONIA, UNSPECIFIED ORGANISM Status: Acute Current Visit: No Qualifiers: Pneumonia type: due to unspecified organism Laterality: right Lung location: lower lobe of lung Qualified Code(s): J18.1 - Lobar pneumonia, unspecified organism (3) Sepsis SNOMED Code(s): 25634475 Code(s): A41.9 - SEPSIS, UNSPECIFIED ORGANISM Status: Acute Current Visit : No Qualifiers: Sepsis type: sepsis due to unspecified organism Qualified Code(s): A41.9 - Sepsis, unspecified organism (4) A-fib SNOMED Code(s): 13781782 Code(s): I48.91 - UNSPECIFIED ATRIAL FIBRILLATION Status: Acute Current Visit: Yes - Problem List Review Problem List Initiated/Reviewed/Updated: Yes - My Orders Last 24 Hours: My Active Orders 11/12/18 10:15 CULTURE SPUTUM + SMEAR [RM] Routine 11/12/18 10:41 LORazepam [Ativan] See Protocol PO ASDIRECTED PRN 11/12/18 10:43 LORazepam [Ativan] See Protocol IVPUSH ASDIRECTED PRN 11/12/18 10:58 RT Aerosol Therapy [RC] .PRN Albuterol/Ipratropium [DuoNeb 3.0-0.5 MG/3 ML] 3 ml NEB Q4HRRT PRN 11/12/18 11:01 Patient Status [ADT] Routine Oxygen Therapy [RC] .PRN Up With Assistance [RC] ASDIRECTED VTE/DVT Education [RC] PER UNIT ROUTINE Vital Signs [RC] 04,08,12,16,20 Acetaminophen [Tylenol] 650 mg PO Q4H PRN Docusate Sodium [Colace] 100 mg PO BID PRN Ondansetron [Zofran] 4 mg IVPUSH Q6H PRN Sodium Chloride 0.9% [Saline Flush] 10 ml FLUSH ASDIRECTED PRN Zolpidem [Ambien] 5 mg PO BEDTIME PRN Anticoagulation Contraindications VTE [AST] Per Unit Routine Peripheral IV Insertion Adult [OM.PC] Routine Resuscitation Status Routine 11/12/18 11:03 Antiembolic Devices [RC] 08,20 Antiembolic Hose [OM.PC] Per Unit Routine 11/12/18 11:04 Peripheral IV Care [RC] ,11/12/18 11:05 Telemetry Monitoring [Cardiac Monitoring] [RC] 08,20 OT Evaluation and Treatment [CONS] Routine PT Evaluation and Treatment [CONS] Routine 11/12/18 15:20 Hemoccult, Stool [OCCULT BLOOD DIAGNOSTIC] [OP] Routine 11/12/18 17:00 Pantoprazole [ProTONIX] 40 mg PO BIDAC 11/12/18 18:00 Albuterol/Ipratropium [DuoNeb 3.0-0.5 MG/3 ML] 3 ml NEB BIDRT Budesonide [Pulmicort] 0.5 mg INH BIDRT Magnesium Oxide 250 mg PO BIDM 11/12/18 18:59 EKG 12 Lead [EKG Documentation Completion] [RC] URGENT 11/12/18 19:00 Moser Catheter Insertion [Insert Urinary Catheter] [OM.PC] Q24H 11/12/18 19:01 Urinary Catheter Assessment [RC] ASDIRECTED 11/12/18 19:19 Digoxin [Lanoxin] 125 mcg IVPUSH ONETIME ONE 11/12/18 19:30 Diltiazem 100 MG in NS @ 5 MG/HR(100ml) Sodium Chloride 0.9% [Normal Saline] 100 ml Diltiazem [Cardizem] 100 mg IV 5 mg/hr 11/12/18 21:00 Rosuvastatin [Crestor] 10 mg PO BEDTIME 11/12/18 Lunch Full Liquid Diet [DIET] 11/13/18 05:11 LACTIC ACID [CHEM] AM TROPONIN I [CHEM] AM 11/13/18 05:15 BASIC METABOLIC PANEL,BMP [CHEM] AM CBC WITH AUTO DIFF [HEME] AM 11/13/18 07:00 cefTRIAXone [Rocephin] 1 gm Sodium Chloride 0.9% [Normal Saline] 50 ml IV Q24H 11/13/18 08:00 Azithromycin [Zithromax] 500 mg Sodium Chloride 0.9% [Normal Saline] 250 ml IV Q24H - Plan Plan:: 83-year-old gentleman brought in by family with a history of alcohol use, low oral intake, unsteadiness, black stool and vomiting. The patient was noted to have leukocytosis but also has a history of leukocytosis with a white count in the past 13-22 range There is concern for an infiltrate on chest x-ray compatible with pneumonia Will obtain blood culture Obtain sputum culture Empirically treat with azithromycin and Rocephin Black stool and vomiting Concern for GI bleed, likely upper GI Will start the patient on IV fluid, hold aspirin, check stool for a "blood Treat with Protonix twice a day we'll monitor hemoglobin, expect some drop from hydration as well Acute renal failure with baseline creatinine around 0.8 Likely due to dehydration, due to low oral intake Give IV fluids Monitor output Follow renal function and electrolytes Hypokalemia We'll replace Lactic acidosis Possible sepsis with pneumonia I don't think the patient has severe sepsis Treat with IV fluids, treat the infection, monitor vitals History of coronary artery disease We will hold aspirin with the concern for GI bleed Continue Crestor Repeat troponin COPD, no acute exacerbation will use Pulmicort, DuoNeb History of hypertension Blood pressure has been on the lower side On the medication list the patient has Norvasc and Cartia I will discontinue the Norvasc Resume Cartia from tomorrow night if blood pressure tolerate Falling We will have PT and OT evaluation and treatment DVT prophylaxis with SCDs, mobilization Hold aspirin and heparin with the concern of GI bleed
[2018-11-12] MEDS ORDERED: Diltiazem 100 MG in Sodium Chloride 0.9% 100 ML IV SCH (19:30)
[2018-11-12] MEDS ORDERED: Sodium Chloride 0.9% 1,000 ML IV SCH (19:45)
[2018-11-12] MEDS ORDERED: Rosuvastatin 10 MG Tab PO SCH (21:00)
--- NOTE | 2018-11-12 21:45 | PCM.DCSUM1 ---
Discharge Summary - Hospital Course Free Text/Narrative:: on admission : 11/12/18 AM 83-year-old gentleman brought in by family with a history of alcohol use, low oral intake, unsteadiness, black stool and vomiting. The patient was noted to have leukocytosis but also has a history of leukocytosis with a white count in the past 13-22 range There is concern for an infiltrate on chest x-ray compatible with pneumonia Will obtain blood culture Obtain sputum culture Empirically treat with azithromycin and Rocephin Black stool and vomiting Concern for GI bleed, likely upper GI Will start the patient on IV fluid, hold aspirin, check stool for a "blood Treat with Protonix twice a day we'll monitor hemoglobin, expect some drop from hydration as well Acute renal failure with baseline creatinine around 0.8 Likely due to dehydration, due to low oral intake Give IV fluids Monitor output Follow renal function and electrolytes Hypokalemia We'll replace Lactic acidosis Possible sepsis with pneumonia I don't think the patient has severe sepsis Treat with IV fluids, treat the infection, monitor vitals History of coronary artery disease We will hold aspirin with the concern for GI bleed Continue Crestor Repeat troponin COPD, no acute exacerbation will use Pulmicort, DuoNeb History of hypertension Blood pressure has been on the lower side On the medication list the patient has Norvasc and Cartia I will discontinue the Norvasc Resume Cartia from tomorrow night if blood pressure tolerates Falling We will have PT and OT evaluation and treatment DVT prophylaxis with SCDs, mobilization Hold aspirin and heparin with the concern of GI bleed Hospital course 11/12/18 PM developed sob, tachycardia no uo today on tele HR 150-160s BP 80s-90s syst EKG obtained: afib with RVR lungs: ronchi - mostly upper airway, decreased BS heart: tachycardia moser placed: dark urine SOB improved after neb for afib with rvr gave cardizem 10 mg x2 - no response gave 250 IVF bolus - BP upto 90s will give digoxin 0.125 mg IV start cardizem drip 5 mg/h cont IVF cont tele monitoring, discussed code status with pt - in the presence of 2 sons wish DNR/DNI status Update 11/12/18 9.30PM remains oliguric with dark urine creatinine upto 1.9 K: 4.0 remains hypotensive - despite IVF boluses - could not maintain cardizem drip HR remained 150s increased oxygen need- upto 50% VM d/w family OK for higher level of care Called [facility] - on crit care diversion Called [facility] - Accepted for tx. Dr. Wood could not obtain ABG with weak and rapid pulse 10.30 PM BP dropped to 60-70s started Levophed, further IVF bolus converted to NS BP maintained with Levophed Appear to have visual hallucinations but alert and redirectable d/w family poor prognosis, confirmed DNR/DNI status with son requested [facility] transfer spent more than 60 min critical care time stabilizing the patient, getting ready for transfer Diagnosis: Stroke: No - Discharge Data Discharge Date: 11/12/18 Discharge Disposition: DC/Tfer to Acute Hospital 02 Condition: Stable - Discharge Diagnosis/Problem(s) (1) DORENE (acute kidney injury) SNOMED Code(s): 40025664 ICD Code: N17.9 - ACUTE KIDNEY FAILURE, UNSPECIFIED Status: Acute Current Visit: No (2) Pneumonia SNOMED Code(s): 429110546 ICD Code: J18.9 - PNEUMONIA, UNSPECIFIED ORGANISM Status: Acute Current Visit: No Qualifiers: Pneumonia type: due to unspecified organism Laterality: right Lung location: lower lobe of lung Qualified Code(s): J18.1 - Lobar pneumonia, unspecified organism (3) Sepsis SNOMED Code(s): 55189657 ICD Code: A41.9 - SEPSIS, UNSPECIFIED ORGANISM Status: Acute Current Visit: No Qualifiers: Sepsis type: sepsis due to unspecified organism Qualified Code(s): A41.9 - Sepsis, unspecified organism (4) A-fib SNOMED Code(s): 20918213 ICD Code: I48.91 - UNSPECIFIED ATRIAL FIBRILLATION Status: Acute Current Visit: Yes - Patient Summary/Data Consults: Consultations 11/12/18 11:05 OT Evaluation and Treatment [CONS] Routine PT Evaluation and Treatment [CONS] Routine - Patient Instructions Diet: NPO Activity: Bedrest - Discharge Plan Home Medications: Home Meds Albuterol [Proventil Neb Soln] 2.5 mg INH Q4H PRN 11/12/18 [History] Albuterol/Ipratropium [DuoNeb 3.0-0.5 MG/3 ML] 3 ml NEB BIDRT neb 11/12/18 [Rx] Albuterol/Ipratropium [DuoNeb 3.0-0.5 MG/3 ML] 3 ml NEB Q4HRRT PRN neb [Rx] Azithromycin [Zithromax] 500 mg IV Q24H vial 11/12/18 [Rx] Budesonide [Pulmicort] 2 ml INH BID 11/12/18 [History] Docusate Sodium [Colace] 100 mg PO BID PRN cap 11/12/18 [Rx] Ferrous Sulfate [Ferosul] 325 mg PO DAILY 11/12/18 [History] LORazepam [Ativan] 0 mg IVPUSH ASDIRECTED PRN syringe 11/12/18 [Rx] LORazepam [Ativan] 0 mg PO ASDIRECTED PRN tablet 11/12/18 [Rx] Pantoprazole [ProTONIX] 40 mg PO BIDAC tab.cr 11/12/18 [Rx] Rosuvastatin [Crestor] 10 mg PO BEDTIME 11/12/18 [History] Zolpidem [Ambien] 5 mg PO BEDTIME PRN tablet 11/12/18 [Rx] cefTRIAXone [Rocephin] 1 gm IV Q24H adv 11/12/18 [Rx] Oxygen Therapy Mode: Venti-Mask FiO2: 35 - Discharge Summary/Plan Comment DC Time >30 min.: Yes (Called [facility] - Accepting MD dr. Wood) - General Info Date of Service: 11/12/18 - Patient Data Vitals - Most Recent: Last Vital Signs Temp 36.9 C 11/12/18 20:06 Pulse 154 H 11/12/18 20:06 Resp 20 11/12/18 20:06 BP 88/53 L 11/12/18 20:06 Pulse Ox 97 11/12/18 20:06 Weight - Most Recent: 60.192 kg I&O - Last 24 hours: Intake & Output 11/12/18 11/12/18 11/12/18 06:59 14:59 22:59 Output Total 80 Balance -80 Lab Results - Last 24 hrs: Laboratory Results - last 24 hr 11/12/18 11/12/18 11/12/18 Range/Units 04:54 04:54 04:54 WBC 25.6 H* (5.0-10.0) 10^3/uL RBC 4.47 L (4.6-6.2) 10^6/uL Hgb 11.7 L (14.0-18.0) g/dL Hct 35.4 L (40.0-54.0) % MCV 79.2 L (80-100) fL MCH 26.2 L (27.0-34.0) pg MCHC 33.1 (33.0-35.0) g/dL Plt Count 458 H (150-450) 10^3/uL Neut % (Auto) 89.8 H (42.2-75.2) % Lymph % (Auto) 2.5 L (20.5-50.1) % Pershing % (Auto) 7.7 (2-8) % Eos % (Auto) 0.0 L (1.0-3.0) % Baso % (Auto) 0.0 (0.0-1.0) % APTT 26.3 (22.0-34.0) SEC Sodium (135-145) mmol/L Potassium (3.6-5.0) mmol/L Chloride (101-111) mmol/L Carbon Dioxide (21.0-31.0) mmol/L Anion Gap BUN (7-18) mg/dL Creatinine (0.6-1.3) mg/dL Est Cr Clr Drug Dosing mL/min Estimated GFR (MDRD) BUN/Creatinine Ratio Glucose (74-105) mg/dL Lactic Acid (0.5-2.2) mmol/L Calcium (8.4-10.2) mg/dl Magnesium 1.6 L (1.8-2.5) mg/dL Total Bilirubin (0.2-1.0) mg/dL AST (10-42) IU/L ALT (10-60) IU/L Alkaline Phosphatase (42-121) IU/L Ammonia (11-35) umol/L Troponin I (0.00-0.02) ng/ml Total Protein (6.7-8.2) g/dl Albumin (3.2-5.5) g/dl Globulin Albumin/Globulin Ratio Amylase 32 (28-100) U/L Lipase 17 L (22-51) U/L Urine Opiates Screen (NEGATIVE) Ur Oxycodone Screen (NEGATIVE) Urine Methadone Screen (NEGATIVE) Ur Barbiturates Screen (NEGATIVE) U Tricyclic Antidepress (NEGATIVE) Ur Phencyclidine Scrn (NEGATIVE) Ur Amphetamine Screen (NEGATIVE) U Methamphetamines Scrn (NEGATIVE) Urine MDMA Screen (NEGATIVE) U Benzodiazepines Scrn (NEGATIVE) Urine Cocaine Screen (NEGATIVE) U Marijuana (THC) Screen (NEGATIVE) Ethyl Alcohol < 5 mg/dL 11/12/18 11/12/18 11/12/18 Range/Units 04:54 05:43 05:43 WBC (5.0-10.0) 10^3/uL RBC (4.6-6.2) 10^6/uL Hgb (14.0-18.0) g/dL Hct (40.0-54.0) % MCV (80-100) fL MCH (27.0-34.0) pg MCHC (33.0-35.0) g/dL Plt Count (150-450) 10^3/uL Neut % (Auto) (42.2-75.2) % Lymph % (Auto) (20.5-50.1) % Pershing % (Auto) (2-8) % Eos % (Auto) (1.0-3.0) % Baso % (Auto) (0.0-1.0) % APTT (22.0-34.0) SEC Sodium 132 L (135-145) mmol/L Potassium 3.3 L (3.6-5.0) mmol/L Chloride 90 L (101-111) mmol/L Carbon Dioxide 21.0 (21.0-31.0) mmol/L Anion Gap 24.3 BUN 19 H (7-18) mg/dL Creatinine 1.6 H (0.6-1.3) mg/dL Est Cr Clr Drug Dosing 33.68 mL/min Estimated GFR (MDRD) 42 BUN/Creatinine Ratio 11.87 Glucose 226 H (74-105) mg/dL Lactic Acid 6.3 H (0.5-2.2) mmol/L Calcium 8.2 L (8.4-10.2) mg/dl Magnesium (1.8-2.5) mg/dL Total Bilirubin 0.6 (0.2-1.0) mg/dL AST 39 (10-42) IU/L ALT 13 (10-60) IU/L Alkaline Phosphatase 119 (42-121) IU/L Ammonia 10 L (11-35) umol/L Troponin I 0.04 H* (0.00-0.02) ng/ml Total Protein 5.7 L (6.7-8.2) g/dl Albumin 2.0 L (3.2-5.5) g/dl Globulin 3.7 Albumin/Globulin Ratio 0.54 Amylase (28-100) U/L Lipase (22-51) U/L Urine Opiates Screen (NEGATIVE) Ur Oxycodone Screen (NEGATIVE) Urine Methadone Screen (NEGATIVE) Ur Barbiturates Screen (NEGATIVE) U Tricyclic Antidepress (NEGATIVE) Ur Phencyclidine Scrn (NEGATIVE) Ur Amphetamine Screen (NEGATIVE) U Methamphetamines Scrn (NEGATIVE) Urine MDMA Screen (NEGATIVE) U Benzodiazepines Scrn (NEGATIVE) Urine Cocaine Screen (NEGATIVE) U Marijuana (THC) Screen (NEGATIVE) Ethyl Alcohol mg/dL 11/12/18 11/12/18 11/12/18 Range/Units 08:06 08:06 19:21 WBC (5.0-10.0) 10^3/uL RBC (4.6-6.2) 10^6/uL Hgb (14.0-18.0) g/dL Hct (40.0-54.0) % MCV (80-100) fL MCH (27.0-34.0) pg MCHC (33.0-35.0) g/dL Plt Count (150-450) 10^3/uL Neut % (Auto) (42.2-75.2) % Lymph % (Auto) (20.5-50.1) % Pershing % (Auto) (2-8) % Eos % (Auto) (1.0-3.0) % Baso % (Auto) (0.0-1.0) % APTT (22.0-34.0) SEC Sodium (135-145) mmol/L Potassium (3.6-5.0) mmol/L Chloride (101-111) mmol/L Carbon Dioxide (21.0-31.0) mmol/L Anion Gap BUN (7-18) mg/dL Creatinine (0.6-1.3) mg/dL Est Cr Clr Drug Dosing mL/min Estimated GFR (MDRD) BUN/Creatinine Ratio Glucose (74-105) mg/dL Lactic Acid 4.3 H (0.5-2.2) mmol/L Calcium (8.4-10.2) mg/dl Magnesium (1.8-2.5) mg/dL Total Bilirubin (0.2-1.0) mg/dL AST (10-42) IU/L ALT (10-60) IU/L Alkaline Phosphatase (42-121) IU/L Ammonia (11-35) umol/L Troponin I 0.04 H* (0.00-0.02) ng/ml Total Protein (6.7-8.2) g/dl Albumin (3.2-5.5) g/dl Globulin Albumin/Globulin Ratio Amylase (28-100) U/L Lipase (22-51) U/L Urine Opiates Screen Negative (NEGATIVE) Ur Oxycodone Screen Negative (NEGATIVE) Urine Methadone Screen Negative (NEGATIVE) Ur Barbiturates Screen Negative (NEGATIVE) U Tricyclic Antidepress Negative (NEGATIVE) Ur Phencyclidine Scrn Negative (NEGATIVE) Ur Amphetamine Screen Negative (NEGATIVE) U Methamphetamines Scrn Negative (NEGATIVE) Urine MDMA Screen Negative (NEGATIVE) U Benzodiazepines Scrn Negative (NEGATIVE) Urine Cocaine Screen Negative (NEGATIVE) U Marijuana (THC) Screen Negative (NEGATIVE) Ethyl Alcohol mg/dL 11/12/18 11/12/18 Range/Units 19:48 19:48 WBC 24.9 H (5.0-10.0) 10^3/uL RBC 4.06 L (4.6-6.2) 10^6/uL Hgb 10.6 L (14.0-18.0) g/dL Hct 32.7 L (40.0-54.0) % MCV 80.5 (80-100) fL MCH 26.1 L (27.0-34.0) pg MCHC 32.4 L (33.0-35.0) g/dL Plt Count 291 D (150-450) 10^3/uL Neut % (Auto) 92.9 H (42.2-75.2) % Lymph % (Auto) 2.5 L (20.5-50.1) % Pershing % (Auto) 4.6 (2-8) % Eos % (Auto) 0.0 L (1.0-3.0) % Baso % (Auto) 0.0 (0.0-1.0) % APTT (22.0-34.0) SEC Sodium 134 L (135-145) mmol/L Potassium 4.0 (3.6-5.0) mmol/L Chloride 99 L (101-111) mmol/L Carbon Dioxide 20.0 L (21.0-31.0) mmol/L Anion Gap 19.0 BUN 26 H (7-18) mg/dL Creatinine 1.9 H (0.6-1.3) mg/dL Est Cr Clr Drug Dosing 25.96 mL/min Estimated GFR (MDRD) 34 BUN/Creatinine Ratio Glucose 180 H (74-105) mg/dL Lactic Acid (0.5-2.2) mmol/L Calcium 7.7 L (8.4-10.2) mg/dl Magnesium (1.8-2.5) mg/dL Total Bilirubin (0.2-1.0) mg/dL AST (10-42) IU/L ALT (10-60) IU/L Alkaline Phosphatase (42-121) IU/L Ammonia (11-35) umol/L Troponin I (0.00-0.02) ng/ml Total Protein (6.7-8.2) g/dl Albumin (3.2-5.5) g/dl Globulin Albumin/Globulin Ratio Amylase (28-100) U/L Lipase (22-51) U/L Urine Opiates Screen (NEGATIVE) Ur Oxycodone Screen (NEGATIVE) Urine Methadone Screen (NEGATIVE) Ur Barbiturates Screen (NEGATIVE) U Tricyclic Antidepress (NEGATIVE) Ur Phencyclidine Scrn (NEGATIVE) Ur Amphetamine Screen (NEGATIVE) U Methamphetamines Scrn (NEGATIVE) Urine MDMA Screen (NEGATIVE) U Benzodiazepines Scrn (NEGATIVE) Urine Cocaine Screen (NEGATIVE) U Marijuana (THC) Screen (NEGATIVE) Ethyl Alcohol mg/dL RUSSELL Results - Last 24 hrs: Microbiology 11/12/18 04:55 Stool Occult Blood (RUSSELL) - Final Stool / Feces NEGATIVE OCCULT BLOOD Med Orders - Current: Current Medications Acetaminophen (Tylenol) 650 mg PO Q4H PRN PRN Reason: Pain (Mild 1-3)/fever Last Admin: 11/12/18 20:34 Dose: 650 mg Albuterol/Ipratropium (Duoneb 3.0-0.5 Mg/3 Ml) 3 ml NEB BIDRT ROEL Last Admin: 11/12/18 18:23 Dose: 3 ml Albuterol/Ipratropium (Duoneb 3.0-0.5 Mg/3 Ml) 3 ml NEB Q4HRRT PRN PRN Reason: sob Budesonide (Pulmicort) 0.5 mg INH BIDRT [facility] Last Admin: 11/12/18 18:23 Dose: 0.5 mg Docusate Sodium (Colace) 100 mg PO BID PRN PRN Reason: Constipation Azithromycin 500 mg/ Sodium (Chloride) 250 mls @ 250 mls/hr IV Q24H RO[facility] Ceftriaxone Sodium 1 gm/ (Sodium Chloride) 50 mls @ 50 mls/hr IV Q24H RO[facility] Diltiazem HCl 100 mg/ Sodium (Chloride) 100 mls @ 5 mls/hr IV .Q20H [facility]; Protocol Last Titration: 11/12/18 21:15 Dose: 0 mg/hr, 0 mls/hr Sodium Chloride (Normal Saline) 1,000 mls @ 100 mls/hr IV ASDIRECTED [facility] Last Infusion: 11/12/18 21:15 Dose: 999 mls/hr Lorazepam (Ativan) 0 mg PO ASDIRECTED PRN; Protocol PRN Reason: alcohol withdrawal Last Admin: 11/12/18 17:14 Dose: 1 mg Lorazepam (Ativan) 0 mg IVPUSH ASDIRECTED PRN; Protocol PRN Reason: alcohol withdrawal Magnesium Oxide (Magnesium Oxide) 250 mg PO BIDM [facility] Stop: 11/13/18 08:01 Last Admin: 11/12/18 17:14 Dose: 250 mg Ondansetron HCl (Zofran) 4 mg IVPUSH Q6H PRN PRN Reason: Nausea/Vomiting Last Admin: 11/12/18 17:12 Dose: 4 mg Pantoprazole Sodium (Protonix) 40 mg PO BIDAC [facility] Last Admin: 11/12/18 17:14 Dose: 40 mg Rosuvastatin Calcium (Crestor) 10 mg PO BEDTIME [facility] Last Admin: 11/12/18 20:34 Dose: 10 mg Sodium Chloride (Saline Flush) 10 ml FLUSH ASDIRECTED PRN PRN Reason: Keep Vein Open Zolpidem Tartrate (Ambien) 5 mg PO BEDTIME PRN PRN Reason: Sleep Discontinued Medications Digoxin (Lanoxin) 125 mcg IVPUSH ONETIME ONE Stop: 11/12/18 19:20 Last Admin: 11/12/18 19:45 Dose: 125 mcg Diltiazem HCl (Cardizem Cd) 120 mg PO BEDTIME ROEL Diltiazem HCl (Diltiazem) Confirm Administered Dose 25 mg .ROUTE .STK-MED ONE Stop: 11/12/18 18:26 Last Admin: 11/12/18 18:49 Dose: Not Given Diltiazem HCl (Diltiazem) 10 mg IVPUSH ONETIME ONE Stop: 11/12/18 18:31 Last Admin: 11/12/18 18:30 Dose: 10 mg Diltiazem HCl (Diltiazem) 10 mg IVPUSH ONETIME ONE Stop: 11/12/18 18:42 Last Admin: 11/12/18 18:41 Dose: 10 mg Sodium Chloride (Normal Saline) 1,000 mls @ 999 mls/hr IV .BOLUS ONE Stop: 11/12/18 06:03 Last Admin: 11/12/18 05:08 Dose: 999 mls/hr Lactated Ringer's (Ringers, Lactated) 1,000 mls @ 250 mls/hr IV ASDIRECTED ROEL Last Admin: 11/12/18 07:06 Dose: 250 mls/hr Azithromycin 500 mg/ Sodium (Chloride) 250 mls @ 250 mls/hr IV ONETIME ONE Stop: 11/12/18 08:02 Last Admin: 11/12/18 07:55 Dose: 250 mls/hr Ceftriaxone Sodium 2,000 mg/ (Sodium Chloride) 100 mls @ 200 mls/hr IV ONETIME ONE Stop: 11/12/18 07:32 Last Admin: 11/12/18 07:12 Dose: 200 mls/hr Potassium Chloride/Sodium Chloride (Normal Saline With 20 Meq Kcl) 1,000 mls @ 125 mls/hr IV ASDIRECTED [facility] Last Infusion: 11/12/18 18:46 Dose: 999 mls/hr Ondansetron HCl (Zofran) 4 mg IV ONETIME ONE Stop: 11/12/18 05:04 Last Admin: 11/12/18 05:10 Dose: 4 mg Pantoprazole Sodium (Protonix Iv) 40 mg IVPUSH ONETIME ONE Stop: 11/12/18 05:16 Last Admin: 11/12/18 05:23 Dose: 40 mg Potassium Chloride (Klor-Con 10) 40 meq PO ONETIME ONE Stop: 11/12/18 10:47 Last Admin: 11/12/18 12:16 Dose: 40 meq *Q Meaningful Use (DIS) - VTE *Q VTE Anticoagulation Contraindications: Treatment Not Tolerated
[2018-11-12] MEDS ORDERED: Norepinephrine 4 MG in Dextrose 5% in Water 246 ML IV SCH ×2 (22:30)
[2018-11-13] MEDS ORDERED: cefTRIAXone 1 GM in Sodium Chloride 0.9% 50 ML IV SCH (07:00)
[2018-11-13] MEDS ORDERED: Azithromycin 500 MG in Sodium Chloride 0.9% 250 ML IV SCH (08:00)
[2018-11-13] MEDS ORDERED: Diltiazem 120 MG Cap.CD PO SCH (21:00)
--- NOTE | 2018-11-13 22:28 | EKG ---
11/12/2018 - LOLLY NASSAR R - TIME: 7:07 p.m. EKG, per my reading, shows atrial fibrillation with rapid ventricular rate. [facility] /[id number]
== END 2018-11-12 22:55 | DRG 871 ==
LOC: DL.ED 04:39 → DL.MS 10:04 → UNDOADMIN 10:04 → DL.MS 11:01
PROVIDERS: ADMIT Internal Medicine; ATTEND Internal Medicine
DX: A41.9 Sepsis, unspecified organism (principal); J18.1 Lobar pneumonia, unspecified organism; N17.9 Acute kidney failure, unspecified; K92.2 Gastrointestinal hemorrhage, unspecified; J44.9 Chronic obstructive pulmonary disease, unspecified; I10 Essential (primary) hypertension; K21.9 Gastro-esophageal reflux disease without esophagitis; E78.00 Pure hypercholesterolemia, unspecified; N40.0 Benign prostatic hyperplasia without lower urinary tract symptoms; F17.210 Nicotine dependence, cigarettes, uncomplicated; E83.42 Hypomagnesemia; Z66 Do not resuscitate; E86.0 Dehydration; I48.91 Unspecified atrial fibrillation; I25.10 Atherosclerotic heart disease of native coronary artery without angina pectoris; E87.6 Hypokalemia; W19.XXXA Unspecified fall, initial encounter; Z87.11 Personal history of peptic ulcer disease; Z79.82 Long term (current) use of aspirin; Z91.14 Patient's other noncompliance with medication regimen; Z79.899 Other long term (current) drug therapy
CPT/HCPCS: 36415; 51702; 70450; 71045; 80048; 80053; 80305-QW; 82140; 82150; 82272; 83605; 83690; 83735; 84484; 85025; 85730; 87040; 87899; 93005; 96361; 96365; 96367; 96375; 99285-25; A9270-GY; C9113; G0480; J0456; J0696; J1160; J2405; J3480; J3490; J7030; J7050; J7060; J7120; J7620-GY